=== PATIENT | female | born 1990 | race Caucasian/White ===

== ENCOUNTER → 2018-02-03 14:00 | Outpatient (CLI) | payer OTHER, SELFPAY | PROVIDERS: Family Provider Internal Medicine; PCP Internal Medicine | DX: Z23 Encounter for immunization (principal) | CPT/HCPCS: 90471; 90686 ==

== ENCOUNTER → 2019-02-11 15:40 | Outpatient (CLI) | payer OTHER, SELFPAY | PROVIDERS: PCP Internal Medicine | DX: Z23 Encounter for immunization (principal) | CPT/HCPCS: 90471; 90686 ==

== ENCOUNTER → 2020-02-17 | Outpatient (CLI) | payer OTHER, SELFPAY | PROVIDERS: PCP Internal Medicine; Referring Provider Internal Medicine; Visit Provider Internal Medicine | DX: Z23 Encounter for immunization (principal) | CPT/HCPCS: 90471; 90686 ==

== ENCOUNTER → 2020-10-06 10:05 | Outpatient (CLI) | payer OTHER, SELFPAY ==
[2020-10-06] MEDS: COVID-19 VACC, Ad26(JANSSEN)/PF 0.5 ML IM (10:14)
== END ==
PROVIDERS: PCP Internal Medicine; Visit Provider Internal Medicine
DX: Z23 Encounter for immunization (principal)
CPT/HCPCS: 0031A; 91303

== ENCOUNTER → 2020-10-06 15:28 | Outpatient (CLI) | payer OTHER, SELFPAY ==
[2020-10-06 16:59] LABS: Add Manual Diff / Slide Review NO; Basophils Absolute Auto 0 /uL (0-100); Basophils Percent Auto 0.5 % (0-2); Eosinophils Absolute Auto 200 /uL (0-450); Eosinophils Percent Auto 2.9 % (2-4); Hematocrit 40.2 % (36-46); Hemoglobin 13.3 g/dL (12.0-16.0); Lymphocytes Absolute Auto 2000 /uL (1100-4500); Lymphocytes Percent Auto 28.4 % (25-40); Mean Corpuscular Hemoglobin 30.8 PG (26-34); Mean Corpuscular Volume 93.3 fL (80-100); Monocytes Absolute Auto 500 /uL (0-900); Monocytes Percent Auto 7.5 % (3-14); Neutrophils Absolute Auto 4400 /uL (1500-7000); Neutrophils Percent Auto 60.7 % (50-75); Platelet Count 372 X10^3/uL (150-400); Red Blood Cell Count 4.31 X10^6/uL (4.0-5.2); Red Cell Distribution Width 13.6 % (11.6-14.8); White Blood Cell Count 7.2 X10^3/uL (4.5-11.0)
[2020-10-06 17:22] LABS: HEMOLYSIS < 15 (0-50); Potassium 3.7 mmol/L (3.4-5.1)
[2020-10-06 17:23] LABS: Alanine Aminotransferase 20 IU/L (<35); Albumin 4.9 g/dL (3.5-5.0); Albumin Globulin Ratio 1.6 (1.0-2.8); Alkaline Phosphatase 50 U/L (38-126); Aspartate Aminotransferase 34 IU/L (14-36); BUN Creatinine Ratio 21.4 (6-22); Blood Urea Nitrogen 12 mg/dL (7-17); Carbon Dioxide 22 mmol/L (22-32); Chloride 103 mmol/L (98-107); Estimated Glomerular Filt Rate > 60.0 mL/min (>60); Globulin 3.1 g/dL (1.7-4.1); Glucose 89 mg/dL (70-100); Sodium 135 mmol/L (137-145)
== END ==
PROVIDERS: PCP Registered Nurse; Referring Provider Registered Nurse; Visit Provider Registered Nurse
DX: K64.9 Unspecified hemorrhoids (principal); K91.1 Postgastric surgery syndromes
CPT/HCPCS: 36415; 80053; 85025

== ENCOUNTER → 2020-10-23 15:46 | Outpatient (CLI) | payer OTHER, SELFPAY ==
[2020-10-23 17:38] LABS: Bilirubin Total 1.4 mg/dL (0.2-1.3)
== END ==
PROVIDERS: PCP Registered Nurse; Referring Provider Registered Nurse; Visit Provider Registered Nurse
DX: R17 Unspecified jaundice (principal)
CPT/HCPCS: 36415; 82247

== ENCOUNTER → 2021-02-27 | Outpatient (CLI) | payer OTHER, SELFPAY | PROVIDERS: PCP Registered Nurse; Referring Provider Internal Medicine; Visit Provider Internal Medicine | DX: Z23 Encounter for immunization (principal) | CPT/HCPCS: 90471; 90686 ==

== ENCOUNTER → 2021-09-13 09:28 | Outpatient (CLI) | payer OTHER, SELFPAY ==
[2021-09-13 10:03] LABS: COVID19 -Nasal RAPID Negative (Negative)
== END ==
PROVIDERS: PCP Registered Nurse; Visit Provider Surgery
DX: Z20.822 Contact with and (suspected) exposure to COVID-19 (principal)
CPT/HCPCS: 87635; C9803

== ENCOUNTER → 2022-02-12 09:00 | Outpatient (CLI) | payer OTHER, SELFPAY | PROVIDERS: PCP Registered Nurse; Referring Provider Internal Medicine; Visit Provider Internal Medicine | DX: Z23 Encounter for immunization (principal) | CPT/HCPCS: 90471; 90686 ==

== ENCOUNTER 2022-10-28 09:48 | Emergency (ER) | payer OTHER, SELFPAY ==
[2022-10-28 10:07] VITALS: BP 140/86; PULSE 77; RESP 18; TEMP 36.5; O2SAT 98; BMI 27.3
[2022-10-28] MEDS: ONDANSETRON 4 MG/2 ML INJ IV (10:34)
[2022-10-28 10:36] LABS: Add Manual Diff / Slide Review NO; Basophils Absolute Auto 0 /uL (0-100); Basophils Percent Auto 0.4 % (0-2); Eosinophils Absolute Auto 100 /uL (0-450); Eosinophils Percent Auto 0.7 % (2-4); Hematocrit 38.1 % (36-46); Hemoglobin 12.8 g/dL (12.0-16.0); Lymphocytes Absolute Auto 1200 /uL (1100-4500); Mean Corpuscular HGB Conc 33.6 % (30-36); Mean Corpuscular Hemoglobin 30.4 PG (26-34); Mean Corpuscular Volume 90.5 fL (80-100); Monocytes Absolute Auto 400 /uL (0-900); Monocytes Percent Auto 5.4 % (3-14); Neutrophils Absolute Auto 6600 /uL (1500-7000); Neutrophils Percent Auto 79.5 % (50-75); Platelet Count 394 X10^3/uL (150-400); Red Blood Cell Count 4.21 X10^6/uL (4.0-5.2); Red Cell Distribution Width 13.7 % (11.6-14.8); White Blood Cell Count 8.3 X10^3/uL (4.5-11.0)
[2022-10-28 10:55] VITALS: BP 124/73; PULSE 70; O2SAT 100
[2022-10-28 10:55] LABS: Alanine Aminotransferase 121 IU/L (<35); Albumin 4.8 g/dL (3.5-5.0); Albumin Globulin Ratio 1.5 (1.0-2.8); Alkaline Phosphatase 60 U/L (38-126); Aspartate Aminotransferase 141 IU/L (14-36); BUN Creatinine Ratio 13.6 (6-22); Bilirubin Total 0.9 mg/dL (0.2-1.3); Blood Urea Nitrogen 8 mg/dL (7-17); Calcium 9.6 mg/dL (8.4-10.2); Carbon Dioxide 26 mmol/L (22-32); Chloride 103 mmol/L (98-107); Estimated Glomerular Filt Rate > 60 mL/min (>60); Globulin 3.1 g/dL (1.7-4.1); Glucose 110 mg/dL (70-100); HEMOLYSIS < 15 (0-50); Lipase 54 U/L (23-300); Potassium 3.7 mmol/L (3.4-5.1); Sodium 139 mmol/L (137-145); Total Protein 7.9 g/dL (6.3-8.2)
[2022-10-28 11:30] VITALS: BP 127/77; PULSE 73; O2SAT 98
--- NOTE | 2022-10-28 11:42 | PC.NURSE ---
Last week pt states that she started vomiting for an unknown reason and proceded to have 2 seizures. She was admitted to [facility] with no clear cause. Started vomiting this morning and was worried about another seizure so she came to be evaluated. Pt adds that her potassium was very low upon last admission
--- NOTE | 2022-10-28 11:49 | ED.NAVMDI ---
HPI - Nausea/Vomiting/Diarrhea General Chief complaint: Nausea/Vomiting/Diarrhea Stated complaint: N/dehydration/seizures/V Time Seen by Provider: 10/28/22 11:10 Source: patient Mode of arrival: Wheelchair History of Present Illness HPI Narrative: Patient 32-year-old female presents today with nausea vomiting. She was admitted to October 21 through October 23 for alcohol withdrawal seizures. She reports to me that she only drinks 2-3 it cause every week night she reports that she did not drink last week and they went to a democrat and then she did have seizure like activity per her fiance were she had foaming at the mouth and bit her tongue. According to records it was probably alcohol withdrawal seizure she was admitted had full workup and discharged home. She thinks that she has been nausea vomiting and dehydrated. She reports that she was doing well she is supposed to be going back to work today but got really nauseous and was not able to do so. She is not had any seizure activity she denies starting drinking again. She was given Zofran by nurse and she reports her symptoms have completely resolved Related Data Previous Rx's Medication Instructions Recorded ondansetron 4 mg disintegrating 4 mg PO Q8H PRN nausea and 10/28/22 tablet vomiting #10 tabs Allergies Allergy/AdvReac Type Severity Reaction Status Date / Time adhesive [ADHESIVE] Allergy Mild REDNESS/SHELLY Unverified 10/14/17 11:42 H vancomycin Allergy Unknown Verified 10/28/22 10:11 Patient History Medical History (Updated 10/28/22 @ 12:18 by Sol Sanchez DO) Abnormal Pap smear of cervix Acne (~2004) Adult general medical exam Cervical cancer screening Human papilloma virus (~2007) Surgical History Anesthesia History of hand surgery (~2008) Family History (Updated 11/29/20 @ 19:56 by Anya Taylor) Brother Age: 37 Acne Brother Age: 31 Acne Brother Age: 29 Acne Father Age: 64 Stroke Mycobacterium avium complex Grandfather Age: 80 Ulcer Grandmother Age: 81 Anxiety Mother Age: 62 Pancreatitis Grandfather Cancer Social History Smoking Status: Current every day smoker Smoking Status: Current every day smoker Exam Initial Vital Signs Initial Vital Signs: Vital Signs Temperature 97.7 F 10/28/22 10:07 Pulse Rate 77 10/28/22 10:07 Respiratory Rate 18 10/28/22 10:07 Blood Pressure 140/86 10/28/22 10:07 Pulse Oximetry 98 10/28/22 10:07 Oxygen Delivery Method Room Air 10/28/22 10:07 GENERAL: Alert 32-year-old female and in no acute distress. HEENT: Head atraumatic,EOMI, pupils reactive, face symmetric, moist mucous membranes CARDIOVASCULAR: Regular rate and rhythm without murmurs, rubs or gallops. RESPIRATORY: Breath sounds equal bilaterally, no wheezes rales or rhonchi. ABDOMEN: Soft, nontender. Normoactive bowel sounds all 4 quadrants. No guarding or rebound. EXTREMITIES: Normal range of motion, no clubbing or edema. Neurovascularly intact NEUROLOGICAL: Alert and oriented x4. SKIN: Warm, dry, no laceration, no petechiae, no rashes or lesions. Course Orders Ordered: ED Orders 10/28/22 10:30 Complete Blood Count AUTO DIFF Stat Comprehensive Metabolic Panel Stat Lipase Stat Discontinued Medications Ondansetron HCl (Ondansetron 4 Mg Odt) 4 mg PO NOW PRN PRN Reason: Nausea And Vomiting Ondansetron HCl (Ondansetron 4 Mg/2 Ml Inj) 4 mg IV NOW PRN PRN Reason: Nausea And Vomiting Last Admin: 10/28/22 10:34 Dose: 4 mg Documented By: AMU Vital Signs Vital signs: Vital Signs - 8 hr 10/28/22 11:30 10/28/22 12:26 Pulse Rate 73 72 Blood Pressure 127/77 Pulse Oximetry 98 100 Oxygen Delivery Method Room Air Room Air MDM - Nausea/Vomiting/Diarrhea Lab Data 10/28/22 10:30 10/28/22 10:30 Labs: Lab Results 10/28/22 10/28/22 Range/Units 10:30 10:30 WBC 8.3 (4.5-11.0) X10^3/uL RBC 4.21 (4.0-5.2) X10^6/uL Hgb 12.8 (12.0-16.0) g/dL Hct 38.1 (36-46) % MCV 90.5 (80-100) fL MCH 30.4 (26-34) PG MCHC 33.6 (30-36) % RDW 13.7 (11.6-14.8) % Plt Count 394 (150-400) X10^3/uL Neut % (Auto) 79.5 H (50-75) % Lymph % (Auto) 14.0 L (25-40) % [place] % (Auto) 5.4 (3-14) % Eos % (Auto) 0.7 L (2-4) % Baso % (Auto) 0.4 (0-2) % Neut # (Auto) 6600 (0223-5174) /uL Lymph # (Auto) 1200 (8115-5400) /uL [place] # (Auto) 400 (0-900) /uL Eos # (Auto) 100 (0-450) /uL Baso # (Auto) 0 (0-100) /uL Sodium 139 (137-145) mmol/L Potassium 3.7 (3.4-5.1) mmol/L Chloride 103 (98-107) mmol/L Carbon Dioxide 26 (22-32) mmol/L BUN 8 (7-17) mg/dL Creatinine 0.59 (0.52-1.04) mg/dL Estimated GFR > 60 (>60) mL/min BUN/Creatinine Ratio 13.6 (6-22) Glucose 110 H (70-100) mg/dL Calcium 9.6 (8.4-10.2) mg/dL Total Bilirubin 0.9 (0.2-1.3) mg/dL AST 141 H (14-36) IU/L ALT 121 H (<35) IU/L Alkaline Phosphatase 60 (38-126) U/L Total Protein 7.9 (6.3-8.2) g/dL Albumin 4.8 (3.5-5.0) g/dL Globulin 3.1 (1.7-4.1) g/dL Albumin/Globulin Ratio 1.5 (1.0-2.8) Lipase 54 (23-300) U/L Point of Care Testing Test Results Negative Urine Dip Bedside Urine Glucose Negative Bedside Urine Bilirubin - Negative Bedside Urine Ketone ++ 40 Urine Specific [place] 1.005 Bedside Urine Occult Blood - Negative Bedside Urine pH 8.5 Bedside Urine Protein - Negative Bedside Urine Urobilinogen - Negative Bedside Urine Nitrite - Negative Bedside Urine Leukocytes - Negative Esterase ECG Data Interpretation: Sinus rhythm rate 71 MI interval 140 QRS [address] changes no T-wave inversions MDM Narrative Medical decision making narrative: Patient 32-year-old female who drinks alcohol I suspect more than what she admits to me based on records. Possible recent alcohol withdrawal seizure. Today just feeling nauseous she did not have a seizure vitals are stable she overall is feeling significantly better after 1 dose of Zofran. I did discuss with her how alcohol withdrawal seizures work risk of alcohol withdrawal including and arrhythmias. She understands and agrees. She is quite convinced it is not an alcohol withdrawal seizure though she reports that she did bite her tongue and Flomax the mouth when she passed out initially. Liver enzymes are mildly elevated AST 141 ALT 121 she has no abdominal pain bilirubin is 0.9 at this time I see no need for further imaging. Liver enzymes are more elevated today than they were as [facility] previously 51 and 31 respectively Records from have been reviewed. Discharge Plan Departure Patient Disposition: Home Clinical Impression: Nausea & vomiting Instructions: Nausea and Vomiting-Adult Activity Restrictions/Additional Instructions: *You have been diagnosed with nausea vomiting *What to do: Increase fluid intake as tolerated. I recommend that you do not drink alcohol *Continue to take medications as directed Zofran 4 mg every 8 hours if needed for nausea or vomiting--> [facility] [place] *Follow up with your primary care provider in 2-3 days or call [phone] *Return to ER if you should have persistent vomiting recurrent seizure lightheadedness passing or any new, worsening or concerning symptoms Prescriptions: New ondansetron 4 mg tablet,disintegrating 4 mg PO Q8H PRN (Reason: nausea and vomiting) Qty: 10 0RF Referrals: Miscellaneous,Doctor, MD [Primary Care Provider] - Stand Alone Forms: Patient Portal/API
[2022-10-28 12:26] VITALS: PULSE 72; O2SAT 100
== END 2022-10-28 12:28 | disposition home or self-care (01) ==
PROVIDERS: Emergency Provider Emergency Medicine
DX: R11.2 Nausea with vomiting, unspecified (principal)
CPT/HCPCS: 36415; 80053; 81003; 81025; 83690; 85025; 93005; 96374; 99284; J2405

== ENCOUNTER → 2023-02-26 15:31 | Outpatient (CLI) | payer OTHER, SELFPAY ==
[2023-02-26 16:43] LABS: Alanine Aminotransferase 16 IU/L (<35); Albumin Globulin Ratio 1.5 (1.0-2.8); Alkaline Phosphatase 55 U/L (38-126); Aspartate Aminotransferase 26 IU/L (14-36); BUN Creatinine Ratio 15.3 (6-22); Bilirubin Total 1.8 mg/dL (0.2-1.3); Blood Urea Nitrogen 11 mg/dL (7-17); Calcium 10.2 mg/dL (8.4-10.2); Carbon Dioxide 24 mmol/L (22-32); Chloride 103 mmol/L (98-107); Estimated Glomerular Filt Rate > 60 mL/min (>60); Globulin 3.3 g/dL (1.7-4.1); Glucose 95 mg/dL (70-100); HEMOLYSIS < 15 (0-50); Potassium 4.1 mmol/L (3.4-5.1); Sodium 137 mmol/L (137-145); Total Protein 8.3 g/dL (6.3-8.2)
== END ==
PROVIDERS: PCP Family Medicine; Referring Provider Family Medicine; Visit Provider Family Medicine
DX: R79.89 Other specified abnormal findings of blood chemistry (principal); B35.1 Tinea unguium
CPT/HCPCS: 36415; 80053

== ENCOUNTER → 2023-02-28 16:19 | Outpatient (CLI) | payer OTHER, SELFPAY | PROVIDERS: PCP Family Medicine; Referring Provider Family Medicine; Visit Provider Family Medicine | DX: Z23 Encounter for immunization (principal) | CPT/HCPCS: 90471; 90686 ==

== ENCOUNTER → 2023-04-30 12:26 | Outpatient (CLI) | payer OTHER, SELFPAY ==
[2023-04-30 13:42] LABS: Alanine Aminotransferase 22 IU/L (<35); Albumin 4.8 g/dL (3.5-5.0); Albumin Globulin Ratio 1.7 (1.0-2.8); Alkaline Phosphatase 54 U/L (38-126); Aspartate Aminotransferase 31 IU/L (14-36); Bilirubin Total 1.5 mg/dL (0.2-1.3); Bilirubin Unconjugated 1.2 mg/dL (0.0-1.1); Globulin 2.8 g/dL (1.7-4.1); HEMOLYSIS < 15 (0-50); Total Protein 7.6 g/dL (6.3-8.2)
== END ==
PROVIDERS: PCP Family Medicine; Referring Provider Family Medicine; Visit Provider Family Medicine
DX: B35.1 Tinea unguium (principal)
CPT/HCPCS: 36415; 80076

== ENCOUNTER → 2024-02-20 13:45 | Outpatient (CLI) | payer OTHER, SELFPAY | PROVIDERS: PCP Family Medicine; Referring Provider Internal Medicine; Visit Provider Internal Medicine | DX: Z23 Encounter for immunization (principal) | CPT/HCPCS: 90471; 90656 ==